=== PATIENT | female | born 1990 | race Two or more races ===

== ENCOUNTER → 2020-04-06 | Outpatient (CLI) | payer OTHER | END | disposition home or self-care (01) | LOC: PRENATAL 14:16 | PROVIDERS: ATTEND Obstetrics & Gynecology Maternal & Fetal Medicine | DX: Z36.89 Encounter for other specified antenatal screening (principal); O36.80X1 Pregnancy with inconclusive fetal viability, fetus 1; Z3A.13 13 weeks gestation of pregnancy ==

== ENCOUNTER → 2020-05-19 | Outpatient (CLI) | payer OTHER | END | disposition home or self-care (01) | LOC: PRENATAL 13:00 | PROVIDERS: ATTEND Obstetrics & Gynecology Maternal & Fetal Medicine | DX: O35.0XX1 Maternal care for (suspected) central nervous system malformation in fetus, fetus 1 (principal); O35.3XX1 Maternal care for (suspected) damage to fetus from viral disease in mother, fetus 1; O98.512 Other viral diseases complicating pregnancy, second trimester; Z36.89 Encounter for other specified antenatal screening; Z3A.19 19 weeks gestation of pregnancy ==

== ENCOUNTER 2020-09-30 00:08 | Inpatient (IN) | payer OTHER ==
[~2020-09-30] VITALS: Ht 160 cm; Wt 76.7 kg
[2020-09-30] MEDS ORDERED: PRENATAL CAPLE1 EAC1 PO (06:53)
[2020-09-30] MEDS ORDERED: PREVACID30 MG PO (06:54)
== END 2020-09-30 10:00 | disposition home or self-care (01) | DRG 831 ==
LOC: LDR 00:08
PROVIDERS: ADMIT Obstetrics & Gynecology; ATTEND Obstetrics & Gynecology
PROC: 4A1HXFZ Monitoring of Products of Conception, Cardiac Rhythm, External Approach (ICD-10-PCS; principal; 2020-09-30)
DX: O98.513 Other viral diseases complicating pregnancy, third trimester (principal); U07.1 COVID-19; Z3A.38 38 weeks gestation of pregnancy

== ENCOUNTER 2020-09-30 08:10 | Outpatient (CLI) | payer OTHER ==
[~2020-09-30 08:10] MED LIST: PRENATAL CAPLE1 EAC1 PO; PREVACID30 MG PO
== END 2020-09-30 10:51 | disposition home or self-care (01) ==
LOC: OBS/DEL 08:10
PROVIDERS: ATTEND Obstetrics & Gynecology
DX: O47.1 False labor at or after 37 completed weeks of gestation (principal); Z3A.38 38 weeks gestation of pregnancy

== ENCOUNTER 2020-10-07 09:12 | Inpatient (IN) | payer OTHER ==
[~2020-10-07] VITALS: Ht 160 cm; Wt 76.2 kg
== END 2020-10-09 14:12 | disposition home or self-care (01) | DRG 806 ==
LOC: OB/GYN 09:12 → LDR 09:40 → SURG-SUITE 15:50
PROVIDERS: ADMIT Obstetrics & Gynecology; ATTEND Obstetrics & Gynecology
PROC: 10E0XZZ Delivery of Products of Conception, External Approach (ICD-10-PCS; principal; 2020-10-07)
PROC: 0HQ9XZZ Repair Perineum Skin, External Approach (ICD-10-PCS; 2020-10-07)
PROC: 0UQMXZZ Repair Vulva, External Approach (ICD-10-PCS; 2020-10-07)
PROC: 10907ZC Drainage of Amniotic Fluid, Therapeutic from Products of Conception, Via Natural or Artificial Opening (ICD-10-PCS; 2020-10-07)
PROC: 3E033VJ Introduction of Other Hormone into Peripheral Vein, Percutaneous Approach (ICD-10-PCS; 2020-10-07)
PROC: 4A1HXFZ Monitoring of Products of Conception, Cardiac Rhythm, External Approach (ICD-10-PCS; 2020-10-07)
DX: O70.0 First degree perineal laceration during delivery (principal); O72.1 Other immediate postpartum hemorrhage; O71.82 Other specified trauma to perineum and vulva; Z37.0 Single live birth; Z3A.39 39 weeks gestation of pregnancy; Z20.822 Contact with and (suspected) exposure to COVID-19

== ENCOUNTER 2024-06-13 09:44 | Emergency (ER) | payer OTHER ==
[~2024-06-13] VITALS: Ht 160 cm; Wt 68.0 kg
[2024-06-13] MEDS ORDERED: AZELASTINE137 MCG/0. (10:12)
[2024-06-13] MEDS ORDERED: ZYRTEC10 MG (10:12)
[2024-06-13] MEDS ORDERED: DIPHENHYDRAMINE HCL 50 MG/ML VIAL 1ML IV STA (10:32)
[2024-06-13] MEDS ORDERED: METOCLOPRAMIDE HCL IV STA (10:33)
[2024-06-13] MEDS ORDERED: KETOROLAC TROMETHAMINE 30 MG VIAL IV STA (10:33)
[2024-06-13] MEDS ORDERED: DIPHENHYDRAMINE HCL 50 MG/ML VIAL 1ML ONE (10:37)
[2024-06-13] MEDS ORDERED: KETOROLAC TROMETHAMINE 30 MG VIAL ONE (10:38)
[2024-06-13] MEDS ORDERED: METOCLOPRAMIDE HCL 5 MG/ML VIAL ONE (10:38)
== END 2024-06-13 12:11 | disposition home or self-care (01) ==
LOC: ER 09:47
DX: O26.892 Other specified pregnancy related conditions, second trimester (principal); G43.909 Migraine, unspecified, not intractable, without status migrainosus; Z3A.14 14 weeks gestation of pregnancy; Z88.8 Allergy status to other drugs, medicaments and biological substances

== ENCOUNTER 2024-08-19 20:11 | Outpatient (CLI) | payer OTHER ==
[~2024-08-19] VITALS: Ht 160 cm; Wt 74.4 kg
[2024-08-19 19:48] VITALS: BP 107/67
[~2024-08-19 20:11] MED LIST changes: +AZELASTINE137 MCG/0.; +ZYRTEC10 MG
[2024-08-19] MEDS ORDERED: RINGERS SOLUTION,LACTATED 1,000 ML IV SCH (20:30)
[2024-08-19 23:18] VITALS: BP 100/58
[2024-08-20 03:05] VITALS: BP 94/58
[2024-08-20 06:35] VITALS: BP 90/56; O2SAT 98
[2024-08-20 09:45] VITALS: BP 90/56
== END 2024-08-20 10:03 | disposition home or self-care (01) ==
LOC: OBS/DEL 20:11
PROVIDERS: ATTEND Obstetrics & Gynecology Gynecology
DX: O36.8120 Decreased fetal movements, second trimester, not applicable or unspecified (principal); Z3A.24 24 weeks gestation of pregnancy

== ENCOUNTER 2024-09-01 21:32 | Outpatient (CLI) | payer OTHER ==
[~2024-09-01] VITALS: Ht 160 cm; Wt 76.2 kg
[2024-09-01 20:45] VITALS: BP 117/65
[2024-09-01 23:36] VITALS: BP 97/59
[2024-09-02 04:06] VITALS: BP 99/59
[2024-09-02 06:34] VITALS: BP 99/58; O2SAT 99
[2024-09-02 07:52] VITALS: BP 94/58
== END 2024-09-02 08:29 | disposition home or self-care (01) ==
LOC: OBS/DEL 21:32
PROVIDERS: ATTEND Obstetrics & Gynecology Gynecology
DX: O36.8120 Decreased fetal movements, second trimester, not applicable or unspecified (principal); Z3A.26 26 weeks gestation of pregnancy

== ENCOUNTER 2024-09-05 16:19 | Outpatient (CLI) | payer OTHER | END 2024-09-05 16:30 | disposition home or self-care (01) | LOC: NST 16:19 | PROVIDERS: ATTEND Obstetrics & Gynecology | DX: Z34.82 Encounter for supervision of other normal pregnancy, second trimester (principal) ==

== ENCOUNTER 2024-09-30 14:40 | Outpatient (CLI) | payer OTHER ==
[~2024-09-30] VITALS: Ht 160 cm; Wt 78.0 kg
[2024-09-30 13:31] VITALS: BP 109/66
[2024-09-30] MEDS ORDERED: PEPCID AC20 MG PO (14:49)
[2024-09-30 15:34] VITALS: BP 104/64
[2024-09-30 17:08] VITALS: BP 104/64
== END 2024-09-30 17:08 | disposition home or self-care (01) ==
LOC: OBS/DEL 14:40
PROVIDERS: ATTEND Obstetrics & Gynecology
DX: O36.8130 Decreased fetal movements, third trimester, not applicable or unspecified (principal); Z3A.30 30 weeks gestation of pregnancy

== ENCOUNTER 2024-11-06 21:16 | Emergency (ER) | payer OTHER ==
[~2024-11-06] VITALS: Ht 160 cm; Wt 82.1 kg
[~2024-11-06 21:16] MED LIST changes: +PEPCID AC20 MG PO
[2024-11-06] MEDS ORDERED: ACETAMINOPHEN 325 MG TABLET PO ONE (22:30)
[2024-11-06] MEDS ORDERED: 0.9 % SODIUM CHLORIDE 1,000 ML IV ONE (22:30)
[2024-11-06 23:08] LABS: BASO % 0.3 % (0.1-1.2); EOS # 0.03 (0.04-0.54); EOS % 0.3 % (0.7-7.0); LYMPH # 0.80 (1.18-3.74); LYMPH % 7.5 % (19.3-53.1); MEAN PLATELET VOLUME 11.10 fl (9.4-12.4); MONO # 0.74 (0.24-0.82); MONO % 6.9 % (4.7-12.5); NEUT # 9.04 (1.56-6.13); NEUT % 84.3 % (34.0-71.1); RED CELL DISTRIBUTION WIDTH 13.2 % (11.6-14.4)
[2024-11-06 23:28] LABS: COVID-19 AG NEGATIVE (NEGATIVE)
[2024-11-06 23:32] LABS: ALT/SGPT 20.0 U/L (12-78); AST/SGOT 37.0 U/L (15-37); BILIRUBIN TOTAL 0.31 mg/dL (0.3-1.2); BUN CREA RATIO 15.0 (7.0-25.0); CREATININE SERUM 0.55 mg/dL (0.55-1.02); GFR 126.52; GLOBULINA 4.4 G/DL (2.4-3.5); GLUCOSE FASTING 95.0 mg/dL (65-100); OSMOLALITY SERUM 274.0 MOSM/KG (275-295)
== END 2024-11-07 01:56 | disposition home or self-care (01) ==
LOC: ER 21:16
PROVIDERS: General Practice
DX: O99.513 Diseases of the respiratory system complicating pregnancy, third trimester (principal); J10.1 Influenza due to other identified influenza virus with other respiratory manifestations; Z3A.35 35 weeks gestation of pregnancy; Z20.822 Contact with and (suspected) exposure to COVID-19

== ENCOUNTER 2024-11-25 19:27 | Inpatient (IN) | payer OTHER ==
[~2024-11-25] VITALS: Ht 160 cm; Wt 83.9 kg
[2024-11-25 18:43] VITALS: BP 125/69
[2024-11-25] MEDS ORDERED: MORPHINE SULFATE 4 MG/ML CARTRIDGE IV PRN (19:45)
[2024-11-25 19:50] LABS: BASO % 0.2 % (0.1-1.2); EOS # 0.05 (0.04-0.54); EOS % 0.5 % (0.7-7.0); LYMPH # 2.56 (1.18-3.74); LYMPH % 23.1 % (19.3-53.1); MEAN PLATELET VOLUME 11.00 fl (9.4-12.4); MONO # 0.73 (0.24-0.82); MONO % 6.6 % (4.7-12.5); NEUT # 7.63 (1.56-6.13); NEUT % 69.0 % (34.0-71.1); RED CELL DISTRIBUTION WIDTH 12.7 % (11.6-14.4)
[2024-11-25] MEDS ORDERED: DYMISTA NASAL S23 GM NASAL (20:11)
[2024-11-25 20:15] LABS: INR < 0.93
[2024-11-25] MEDS ORDERED: ERYTHROMYCIN BASE OPHT 1GM EACH TUBE OP ONE (23:12)
[2024-11-25] MEDS ORDERED: CHLORHEXIDINE GLUCONATE 120 ML BOTTLE TOP ONE (23:12)
[2024-11-25] MEDS ORDERED: OXYTOCIN 20 UNITS/1000ML RL PIGGYBAG IV ONE (23:12)
[2024-11-25] MEDS ORDERED: LIDOCAINE HCL 1% 10ML VIAL ONE (23:12)
[2024-11-25 23:45] VITALS: BP 94/61
[2024-11-25] MEDS ORDERED: ACETAMINOPHEN WITH CODEINE 1 UDTAB TABLET PO PRN (23:45)
[2024-11-25] MEDS ORDERED: CHLORHEXIDINE GLUCONATE 120 ML BOTTLE TP SCH (23:45)
[2024-11-25] MEDS ORDERED: OXYTOCIN 1,000 ML IV SCH (23:45)
[2024-11-26] VITALS: BP 123/70
[2024-11-26 00:15] VITALS: BP 104/66
[2024-11-26] MEDS ORDERED: ERYTHROMYCIN BASE OPHT 1GM EACH TUBE OP ONE (00:30)
[2024-11-26] MEDS ORDERED: ONDANSETRON HCL 2 MG/ML VIAL ONE (00:32)
[2024-11-26] MEDS ORDERED: ONDANSETRON HCL 2 MG/ML VIAL IV ONE (01:30)
[2024-11-26 01:54] VITALS: BP 130/70
[2024-11-26 07:51] VITALS: BP 94/65
[2024-11-26 16:00] VITALS: BP 119/76
[2024-11-27 01:58] VITALS: BP 100/60
[2024-11-27 08:22] VITALS: BP 115/76
== END 2024-11-27 13:15 | disposition home or self-care (01) | DRG 807 ==
LOC: LDR 19:27 → OB/GYN 19:27 → LDR 20:24 → OB/GYN 11-26 01:25
PROVIDERS: Obstetrics & Gynecology; ADMIT Obstetrics & Gynecology Gynecology; ATTEND Obstetrics & Gynecology Gynecology
PROC: 10E0XZZ Delivery of Products of Conception, External Approach (ICD-10-PCS; principal; 2024-11-25)
PROC: 4A1HXCZ Monitoring of Products of Conception, Cardiac Rate, External Approach (ICD-10-PCS; 2024-11-25)
DX: O80 Encounter for full-term uncomplicated delivery (principal); Z37.0 Single live birth; Z3A.38 38 weeks gestation of pregnancy